=== PATIENT | female | born 2000 | race African-American/Black ===

== ENCOUNTER 2021-03-22 09:17 | Emergency (ER) | payer MEDICAID ==
[~2021-03-22] VITALS: Ht 177.8 cm; Wt 104.0 kg
[2021-03-22] MEDS ORDERED: ACETAMINOPHEN 325MG TABLET PO STA (09:36)
[2021-03-22 09:56] LABS: BASOPHILS % 0.4 % (0.0-2.0); EOSINOPHILS % 0.7 % (0.0-5.0); HEMATOCRIT. 43.4 % (36.0-48.0); HEMOGLOBIN. 14.3 g/dL (12.0-16.0); LYMPHOCYTES % 19.7 % (20.0-50.0); MEAN CORPUSCULAR HEMOGLOBIN 25.7 pg (28.0-32.0); MEAN CORPUSCULAR VOLUME 77.8 fL (81.0-99.0); MEAN PLATELET VOLUME 7.4 fl (7.4-10.4); MONOCYTES % 7.2 % (2.0-8.0); PLATELET 345 x1000/uL (130-400); RED BLOOD CELL COUNT 5.58 mill/uL (4.2-5.4); RED CELL DISTRIBUTION WIDTH 15.4 % (11.6-14.6)
[2021-03-22 10:01] LABS: CHLORIDE 110 mEq/L (98-107)
[2021-03-22 10:07] LABS: HCG SCREEN NEGATIVE
[2021-03-22 10:13] LABS: B-HCG QUANTITATIVE < 1 mIU/mL (<3)
[2021-03-22] MEDS ORDERED: KETOROLAC 30MG/ML VIAL IV ONE (11:30)
[2021-03-22 12:06] VITALS: BP 135/78
== END 2021-03-22 12:26 | disposition home or self-care (01) ==
LOC: ER 09:23
DX: R10.2 Pelvic and perineal pain (principal); F12.10 Cannabis abuse, uncomplicated
CPT/HCPCS: 36415; 74176; 76830; 76856; 80053; 81025; 84702; 84703; 85025; 86850; 86900; 93005; 99285

== ENCOUNTER 2022-10-06 11:59 | Observation (INO) | payer MEDICAID, OTHER ==
[~2022-10-06] VITALS: Ht 162.6 cm; Wt 145.1 kg
== END 2022-10-06 14:12 | disposition left against medical advice (07) ==
LOC: 8 EST LDRP 11:59
PROVIDERS: ADMIT Obstetrics & Gynecology; ATTEND Obstetrics & Gynecology
DX: O62.9 Abnormality of forces of labor, unspecified (principal); Z3A.32 32 weeks gestation of pregnancy
CPT/HCPCS: 59025; G0378; 99281

== ENCOUNTER 2022-10-08 08:53 | Observation (INO) | payer OTHER ==
[~2022-10-08] VITALS: Ht 165.1 cm; Wt 140.6 kg
[2022-10-08] MEDS ORDERED: LACTATED RINGERS 1,000 ML IV SCH (10:45)
[2022-10-08 12:08] LABS: CLARITY URINE CLOUDY (CLEAR); COLOR URINE YELLOW (YELLOW); KETONES URINE NEGATIVE (NEGATIVE); LEUKOCYTE ESTERASE URINE 1+ (NEGATIVE); NITRITE URINE NEGATIVE (NEGATIVE); OCCULT BLOOD URINE NEGATIVE (NEGATIVE); PH URINE 6.5 (4.5-8.0); PROTEIN URINE 2+ (NEGATIVE); SPECIFIC GRAVITY URINE 1.013 (1.005-1.030); UROBILINOGEN URINE 0.2 E.U./dL (0.2-1.0)
[2022-10-08] MEDS: TERBUTALINE SULFATE 1MG/ML VIAL SUBCUT PRN ×2 (15:26→17:48)
[2022-10-08] MEDS ORDERED: CEFAZOLIN 2,000 MG in DEXT 5% WATER 100 ML IV SCH (16:00)
[2022-10-09 00:25] LABS: BASOPHILS % 0.3 % (0.0-2.0); EOSINOPHILS % 0.6 % (0.0-5.0); HEMATOCRIT. 36.1 % (36.0-48.0); LYMPHOCYTES % 19.2 % (20.0-50.0); MEAN CORPUSCULAR HEMOGLOBIN 26.2 pg (28.0-32.0); MEAN CORPUSCULAR VOLUME 78.7 fL (81.0-99.0); MEAN PLATELET VOLUME 7.8 fl (7.4-10.4); MONOCYTES % 7.4 % (2.0-8.0); NEUTROPHILS % 72.5 % (40.0-76.0); PLATELET 237 x1000/uL (130-400); RED BLOOD CELL COUNT 4.58 mill/uL (4.2-5.4); RED CELL DISTRIBUTION WIDTH 15.1 % (11.6-14.6)
[2022-10-09 00:40] LABS: CHLORIDE 107 mEq/L (98-107)
[2022-10-09 00:46] LABS: D-DIMER 1.37 mg/L FEU (<0.50); PARTIAL THROMBOPLASTIN TIME 26.7 sec (23.4-31.0); PROTHROMBIN TIME 10.6 sec (9.6-11.0)
== END 2022-10-09 09:00 | disposition home or self-care (01) ==
LOC: 8 EST LDRP 08:53 → 8 EST A/PP 08:57
PROVIDERS: ADMIT Obstetrics & Gynecology; ATTEND Obstetrics & Gynecology
DX: O62.9 Abnormality of forces of labor, unspecified (principal); O26.893 Other specified pregnancy related conditions, third trimester; R10.9 Unspecified abdominal pain; G47.30 Sleep apnea, unspecified; Z3A.32 32 weeks gestation of pregnancy; Z79.899 Other long term (current) drug therapy
CPT/HCPCS: 36415; 59025; 76805; 76815; 76817; 76818; 80053; 81003; 82731; 84550; 85025; 85379; 85384; 85610; 85730; 87086; 96361; 96365; 96372; G0378; J0690; J3105; J7060; J7120; 99281

== ENCOUNTER 2022-10-25 10:01 | Observation (INO) | payer OTHER ==
[~2022-10-25] VITALS: Ht 162.6 cm; Wt 137.0 kg
== END 2022-10-25 12:20 | disposition home or self-care (01) ==
LOC: 8 EST LDRP 10:01 → 8 EST A/PP 10:14
PROVIDERS: ADMIT Obstetrics & Gynecology; ATTEND Obstetrics & Gynecology
DX: O26.893 Other specified pregnancy related conditions, third trimester (principal); R10.9 Unspecified abdominal pain; Z3A.34 34 weeks gestation of pregnancy
CPT/HCPCS: 59025; 76815; 76818; G0378; 99281; G0379

== ENCOUNTER 2024-05-22 20:23 | Emergency (ER) | payer MEDICAID, OTHER ==
[~2024-05-22] VITALS: Ht 167.6 cm; Wt 100.0 kg
[2024-05-22 20:27] VITALS: BP 123/69; PULSE 79; RESP 18; TEMP 98.7; O2SAT 98
[2024-05-22 21:16] LABS: CLARITY URINE CLOUDY (CLEAR); COLOR URINE DARK YELLOW (YELLOW); GLUCOSE URINE NEGATIVE (NEGATIVE); KETONES URINE TRACE (NEGATIVE); LEUKOCYTE ESTERASE URINE 3+ (NEGATIVE); NITRITE URINE NEGATIVE (NEGATIVE); OCCULT BLOOD URINE 2+ (NEGATIVE); PH URINE 7.5 (4.5-8.0); PROTEIN URINE 2+ (NEGATIVE); SPECIFIC GRAVITY URINE 1.014 (1.005-1.030); UROBILINOGEN URINE >8.0 E.U./dL (0.2-1.0)
[2024-05-22 21:28] LABS: BACTERIA URINE 2+
[2024-05-22 21:29] LABS: SQUAMOUS EPITHELIAL CELL URINE 1+ /lpf (RARE/1+)
[2024-05-22 21:55] LABS: CHLORIDE 104 mEq/L (98-107); POTASSIUM 3.4 mEq/L (3.5-5.1); SODIUM 133 mEq/L (136-145)
[2024-05-22 21:56] LABS: CALCIUM 8.9 mg/dL (8.7-10.4); CARBON DIOXIDE 21 mEq/L (21-32); DIFFERENTIAL COMMENT 1; HEMATOCRIT. 40.3 % (36.0-48.0); HEMOGLOBIN. 13.3 g/dL (12.0-16.0); INR 1.1; MEAN CORPUSCULAR HEMOGLOBIN 25.8 pg (28.0-32.0); MEAN CORPUSCULAR HGB CONC 32.9 g/dL (31.0-37.0); MEAN CORPUSCULAR VOLUME 78.5 fL (81.0-99.0); MEAN PLATELET VOLUME 7.8 fl (7.4-10.4); PLATELET 295 x1000/uL (130-400); PROTHROMBIN TIME 12.3 sec (9.6-11.0); RED BLOOD CELL COUNT 5.13 mill/uL (4.2-5.4); RED CELL DISTRIBUTION WIDTH 14.4 % (11.6-14.6); WHITE BLOOD COUNT 18.6 x1000/uL (4.5-11.0)
[2024-05-22 21:58] LABS: HCG SCREEN NEGATIVE
[2024-05-22 22:01] LABS: CREATININE 0.9 mg/dL (0.6-1.0); GLUCOSE 125 mg/dL (70-105); UREA NITROGEN BLOOD 6 mg/dL (9-23)
[2024-05-22 22:03] LABS: ALANINE AMINOTRANSFERASE 86 IU/L (10-49); ALBUMIN 3.9 g/dL (3.2-4.8); ASPARTATE AMINOTRANSFERASE 92 IU/L (<34); BILIRUBIN DIRECT 0.5 mg/dL (<=3.0)
[2024-05-22 22:04] LABS: PROTEIN TOTAL 7.1 g/dL (6.0-8.3)
[2024-05-22 22:50] LABS: ATYPICAL LYMPHOCYTES 1
[2024-05-22 22:51] LABS: PLATELET ESTIMATE NORMAL
[2024-05-22 22:57] LABS: GIANT PLATELETS FEW; MICROCYTOSIS 1+; TARGET CELLS 1+; TEAR DROP CELLS 1+
[2024-05-26] MEDS ORDERED: SULF1TAB48 MT (10:23)
[2024-05-26] MEDS ORDERED: AMOX1TAB16 MT (10:23)
== END 2024-05-22 23:39 | disposition left against medical advice (07) ==
LOC: ER 20:23
DX: R10.9 Unspecified abdominal pain (principal); Z53.21 Procedure and treatment not carried out due to patient leaving prior to being seen by health care provider
CPT/HCPCS: 36415; 80048; 80076; 81003; 81025; 84703; 85025; 99283